=== PATIENT | female | born 1930 | race Caucasian/White ===

== ENCOUNTER 2016-06-20 19:52 | Emergency (ER) | payer MEDICARE ==
[~2016-06-20] VITALS: Ht 160 cm; Wt 65.9 kg
[~2016-06-20 19:52] MED LIST: AMLO10TA3 PO; LISI40TA PO; PROC-4 PO
[2016-06-20 20:15] VITALS: BP 174/77; PULSE 100; RESP 16; O2SAT 99
--- NOTE | 2016-06-20 20:18 | ED.REPORT ---
HPI-Chest Pain 40 and Over Date of Service Jun 20, 2016 ED Provider: Christian Lloyd MD An 86 year old female with a history of hypertension presents to the ED via EMS with shortness of breath after walking down her driveway today. The patient also reports pleuritic left-sided chest pain, chronic bilateral leg swelling, bilateral leg tenderness, bilateral leg weakness, productive cough, and a frontal headache. She denies fever, dysuria, increased urination, sore throat, palpitations, nausea, diaphoresis, or other symptoms. The patient walks every day but these symptoms are unusual. EMS found the patient with a BP of 150/90, a pulse of 100, and a respiration rate of 14. She was given 81mg ASA x4 en route. The patient has had similar symptoms in the past but denies a history of heart conditions or blood clots. Nursing Notes Stated Complaint: CHEST PAIN,SOB Chief Complaint: Chest Pain Nursing Notes Reviewed: Yes (G[employer], [employer] not reconciled) Allergies: Coded Allergies: Penicillins (Verified Allergy, Unknown, 01/25/15) Scheduled Amlodipine (Amlodipine) 10 Mg Tablet 10 MG PO DAILY Lisinopril (Lisinopril) 40 Mg Tablet 40 MG PO DAILY Scheduled PRN Prochlorperazine Maleate (Compazine) 10 Mg Tablet 10 MG PO TID PRN PRN For Headache General Time Seen by MD: 20:04 Chief Complaint Shortness of breath Hx Obtained From: Patient Arrived By: Ambulance Sudden in Onset?: No Onset Occurred: 1 - 4 hours ago Symptom Duration: Since onset Location: : Chest left Quality: Painful, Pleuritic Severity: Current: Moderate Severity: Maximum: Moderate Associated with: Reports: Cough, productive, Denies: Fever, Nausea, Palpitations Pertinent Negative: Relieved by nothing Context Related History: Reports: Hypertension Recent Healthcare: No recent doctor visit Similar Sx Previous: Yes Past Medical History Past Medical History Hypertension Past Surgical History Varicose vein surgery Smoking History Never Smoker Social History Alcohol Use: Denies alcohol use Drug Use: Denies drug use Ambulatory Status Independent Review of Systems Review of Systems Note: + Productive cough Constitutional: Denies: Fever Respiratory: Reports: Pleuritic pain, Shortness of breath Cardiovascular: Reports: Chest pain (Left-sided), Denies: Palpitations GI: Denies: Nausea, Vomiting Musculoskeletal: Reports: Extremity pain (Bilateral legs), Extremity swelling ( Chronic, bilateral legs) Skin: Denies Diaphoresis Neurologic: Reports: Headache (Frontal), Weakness (Bilateral legs) Complete sys rev & neg: except as marked. Ears / Nose / Throat: Denies: Sore throat Female: Denies: Dysuria, Urination decreased Physical Exam Initial Vital Signs Vital Signs (First) Date Time Temp Pulse Resp B/P Pulse Ox O2 Delivery O2 Flow Rate FiO2 06/20/16 20:15 36.7 100 16 174/77 99 Room Air Initial VS: Reviewed, Vital signs abnormal (HR 103 during exam) Head / Eyes: Atraumatic, Normocephalic ENT: Conjunctiva normal, No scleral icterus Neck: Supple, Full range of motion Skin: Warm, Dry, No cyanosis Neurologic: Alert, Oriented, Nonfocal Psychiatric: Mood/affect normal, Behavior normal, Normal thought content General/Constitutional: Awake, Alert, No acute distress Respiratory / Chest: Breath sounds NL, Breath sounds = bilat, No respiratory distress Cardiovascular: Regular rhythm, Heart sounds NL Heart Rate / Rhythm: Positive: Tachycardia Trace edema bilateral ankles Abdomen: Soft, Non-tender Neck: Atraumatic, Supple, Full range of motion, No swelling Interpretation & Diagnostics US DVT, BILATERAL LOWER EXTREMITIES: CONCLUSION: No evidence of deep venous thrombosis of the bilateral lower extremities. Report transmitted to ED by Radiologist Yoan Wise at 06/21/2016 - 12:45:59 AM PDT Lab Results Interpretation Result Diagram: 06/20/16200906/20/162009 Test 06/20/16 20:10 06/20/16 23:59 06/21/16 00:09 White Blood Count 8.1th/mm3 (3.8-10.1) Red Blood Count 4.29mil/mm3 (3.90-5.20) Hemoglobin 13.0g/dL (12.0-15.6) Hematocrit 38.5% (35.0-46.0) Mean Corpuscular Volume 89.7fL (81-100) Mean Corpuscular Hemoglobin 30.3pg (27.0-35.0) Mean Corpuscular Hemoglobin Concent 33.8% (32.0-37.0) Red Cell Distribution Width 14.0% (12.3-15.4) Platelet Count 238bil/L (150-400) Neutrophils (%) (Auto) 56.1% (40-74) Lymphocytes (%) (Auto) 33.0% (14-46) Monocytes (%) (Auto) 7.9% (4-12) Eosinophils (%) (Auto) 2.6% (0-5) Basophils (%) (Auto) 0.2% (0-3) D-Dimer 1.09mg/L FEU (<0.50) Sodium Level 139mEq/L (134-144) Potassium Level 4.9mEq/L (3.5-5.2) Chloride Level 99mEq/L (97-108) Carbon Dioxide Level 22mmol/L (18-29) Blood Urea Nitrogen 44mg/dL (8-27) Creatinine 1.44mg/dL (0.57-1.00) Estimat Glomerular Filtration Rate 49mL/min (>59) Glucose Level 102mg/dL (60-99) Calcium Level 11.0mg/dL (8.5-10.1) Magnesium Level 2.2mg/dL (1.6-2.6) Total Bilirubin 0.4mg/dL (0.0-1.2) Aspartate Amino Transf (AST/SGOT) 23U/L (0-50) Alanine Aminotransferase (ALT/SGPT) 15U/L (0-32) Alkaline Phosphatase 73U/L (25-165) Total Protein 8.4g/dL (6.4-8.4) Albumin 4.8g/dL (3.4-5.0) Troponin T 0.010ug/L (0.0-0.011) Hold Urine Received (Received) Lab Results Interpretation: CBC normal CP mild renal insufficiency-please note her calculated creatinine clearance is such that radiologist does not recommend contrasts such as for CT angio troponin x2 negative D dimer marginally elevated ECG Interpretation ECG Interpretation: EKG demonstrate normal sinus rhythm with a first-degree heart block, there is mild LVH suggested. The rate during the EKG is normal, but during the exam her rate climb up to 103-105 the sinus tachycardia. No clear acute ischemic changes are evident, no prior EKGs available for comparison. Time: 20:18 Interpreted by: ED physician X-Ray Chest Interpretation Chest Xray Interpretation: IMPRESSION: No acute cardiopulmonary findings. Dictated by: Alondra Mendoza M.D. on 06/20/2016 at 21:10 View: Portable, 1 view Interpretation / Wet Read by: Interpret - Radiologist Re-Eval/Medical Decision Med Decision/Clinical Course This is an 86-year-old female without prior known cardiac or history or lumbar metabolic history he presents complaining of an episode of chest discomfort and shortness of breath that occurred she walked back from the mailbox. Rest, and it was a mild pleuritic component as well. There is no diaphoresis, no nausea. Gait this is happened before-that had clear causes never been identified. Symptoms are now resolved. On exam the patient clinically appears well. She is an energetic, smiling 86- year-old female in no distress. She did have a brief episode of a low-grade tachycardia in the 102 range, but it resolved without any intervention. Her lungs are clear, she has no findings of heart failure, no murmurs. She has no clinical findings of venous thromboembolism evident on exam. Her EKG demonstrates no clear markers of ischemia. Chest x-ray was normal. Blood work revealed a normal troponin, given the pleuritic discomfort as interested in a CT angiogram given the possibility of PE in this setting, with a low-grade tachycardia. However, with her age and renal insufficiency, radiology indicated that her creatinine clearance is to load per minute CT. At this point the patient's entirely asymptomatic, her vitals are normalized, she does not want to stay in the hospital. An ultrasound was obtained of the lower extremities which was negative for DVT. A second troponin was also obtained and was also negative. I think this helps reduce the probability of pulmonary embolus to a fairly low level that would be acceptable-given the lack of alternatives, and the fact that the patient does not wish to be anticoagulated, or admitted. Patient remained a symptomatically for several hours in the department. I discussed admitting her to the hospital and offered this, but the patient wishes to go home-she lives closely, has family is keeping an eye on her, indicates return if she has no worsening symptoms, like a follow-up with a primary care physician. Medically at this age, this is not unreasonable at all. The patient is not interested in aggressive anticoagulation, and in fact it was difficult for me to persuade the patient even take aspirin-she reports she bruises pretty easily of aspirin, but she is agreed to take 81 mg daily until she sees her PCP. She also agrees to return to the emergency department if symptoms recur. She is discharged asymptomatic in improved condition. Source of Hx: Old records, EMS Time of Eval: 22:31 Patient Status: Condition improved Re-Evaluation/Progress Note: Discussed with patient and her daughter lab and x-ray results with plan for lower extremity US. Time of Eval: 23:57 Patient Status: Condition improved Re-Evaluation/Progress Note: Discussed with patient US results with plan for repeat labs. Patient agrees with plan for care and all questions were addressed. Time of Eval: 00:54 Patient Status: Condition improved Re-Evaluation/Progress Note: Discussed with patient US, x-ray, and lab results, diagnosis, and plan for discharge. Follow-up and return to the ER instructions given. Patient agrees with plan for care and all questions were addressed. Differential Diagnosis: Positive: Chest pain, acute, Negative: Acute coronary syndrome, Acute myocardial infarct, Congestive heart failure, Dysrhythmia, Esophageal rupture, Gun shot wound chest, Hypertroph cardiomyopathy, Tamara-Cabral syndrome, Pneumomediastinum, Pneumothorax, Pulmonary edema, Stab wound chest, Stable angina Counseled Regarding: Diagnosis, Lab results, Need for follow-up, When/why to return to ED Discharge & Departure Primary Impression: Chest pain Chest pain type: unspecified Qualified Code: R07.9 - Chest pain, unspecified Disposition: Home Discharge Condition All VS Reviewed: Yes Condition: Improved Additional Instructions: 1. A clear or dangerous cause of the chest discomfort and trouble breathing was not identified. 2. Your initial tests in the emergency department were normal. 3. Had an ultrasound of both legs to evaluate for the possibility of a blood clot-none was visualized 4. Call your primary care physician tomorrow, as you do need to be rechecked 5. As discussed if her symptoms reoccur - you need to return directly to the emergency department. 6. Take aspirin 81mg daily. Referrals: Annabelle Kendall MD (PCP) (Family) Scribe Attestation Portions of this note were transcribed by Tisha Perales. I, Dr. Lloyd, personally performed the history, physical exam, and medical decision-making; I reviewed and confirmed the accuracy of the information in the transcribed note. Signed by: Salena Elkins, 06/21/2016, 01:15 copies to: Annabelle Kendall MD, Matthew F MD Jun 20, 2016 20:18 TISHA PERALES Jun 20, 2016 20:25
[2016-06-20 20:19] LABS: BASOPHILS % (AUTO) 0.2 % (0-3); EOSINOPHILS % (AUTO) 2.6 % (0-5); MONOCYTES % (AUTO) 7.9 % (4-12); Mean Corpuscular Hemoglobin 30.3 pg (27.0-35.0); Mean Corpuscular Volume 89.7 fL (81-100); NEUTROPHILS % (AUTO) 56.1 % (40-74); Platelet Count 238 bil/L (150-400)
[2016-06-20 20:45] LABS: TROPONIN T < 0.010 ug/L (0.0-0.011)
[2016-06-20 20:53] LABS: Magnesium 2.2 mg/dL (1.6-2.6)
--- NOTE | 2016-06-20 21:12 | DRSVH ---
PROCEDURE: X-RAY CHEST ONE VIEW, PORTABLE ([id number]) INDICATIONS: CHEST PAIN TECHNIQUE: One view of the chest was acquired. COMPARISON: [facility], CR, CHEST 1VW (PORTABLE), 10/30/2009, 3:43. FINDINGS: Surgical changes and devices: None. Lungs and pleura: No pleural effusions or pneumothorax. Lungs are clear. Mediastinum: Mediastinal contours appear normal. Heart size is normal. Bones and chest wall: No suspicious bony lesions. Overlying soft tissues appear unremarkable. IMPRESSION: No acute cardiopulmonary findings. Dictated by: Alondra Mendoza M.D. on 06/20/2016 at 21:10 Approved by: Alondra Mendoza M.D. on 06/20/2016 at 21:10
[2016-06-20] MEDS ORDERED: 0.9% Sodium Chloride 250 ML IV ONE (21:55)
[2016-06-21 01:13] VITALS: BP 150/69; PULSE 90; RESP 18; O2SAT 97
--- NOTE | 2016-06-21 08:54 | DRSVH ---
PROCEDURE: US VENOUS LEG DUPLEX BILATERAL INDICATIONS: cp sob ro dvt TECHNIQUE: Real-time imaging, as well as color and pulse Doppler interrogation, were performed of the deep veins of both legs from the inguinal ligament to the popliteal fossa. COMPARISON: None. FINDINGS: The deep veins are normally compressible, and free of intraluminal thrombus. Color and pu lse Doppler demonstrate normal phasic intravascular flow. There is normal augmentation response to d istal compression maneuver. IMPRESSION: No deep venous thrombosis identified within either the left or right lower extremities. Dictated by: Shun Oscar [facility] Interpreted: Donna Hansen MD on 06/21/2016 at 8:53 Transcribed by: BONNIE on 06/21/2016 at 8:54 Approved by: Donna Hansen MD, PhD on 06/21/2016 at 16:27
== END 2016-06-21 01:15 ==
LOC: EDBD 19:52 → SED 19:52
DX: R07.9 Chest pain, unspecified (principal); I10 Essential (primary) hypertension; Z88.0 Allergy status to penicillin
CPT/HCPCS: 36415; 71010; 80053; 83735; 84484; 85025; 85378; 93005; 93970; 99285; J7050